=== PATIENT | male | born 1955 | race Caucasian/White ===

== ENCOUNTER 2017-09-30 16:14 | Inpatient (IN) | payer MEDICARE ==
[2017-09-30] MEDS ORDERED: NORMAL SALINE 1,000 ML IV ONE (16:53)
[2017-09-30] MEDS ORDERED: LEVOFLOXACIN IN DEXTROSE 5 % 500 MG/100 ML BAG IV SCH (17:00)
--- NOTE | 2017-09-30 17:23 | ERNOTE ---
Dyspnea - Date Date of Service: 09/30/17 - General Presenting Symptoms: shortness of breath Time Seen by Provider: 09/30/17 16:47 Source: patient Exam Limitations: no limitations - Immun/Allergies/Home Medications Immunizations: IMMUNIZATION HX Immunizations Up to Date Yes History of Influenza Vaccine Yes Hx Pneumococcal Vaccination Yes Allergies/Adverse Reactions: Allergies bupropion HCl [From Zyban] Allergy (Intermediate, Verified 09/30/17 16:35) Other swollen eyelids varenicline tartrate [From Chantix] Adverse Reaction (Mild, Verified 09/30/17 16 :35) facial swelling Home Medications: HOME MEDICATIONS Simvastatin 20 mg PO HS 10/16/12 [Last Taken Unknown] Losartan Potassium [Cozaar] 25 mg PO DAILY 08/25/16 [Last Taken Unknown] Aspirin [Aspir-Low] 81 mg PO DAILY 09/30/17 [Last Taken Unknown] - History of Present Illness Narrative: Patient presents to the ED for cough and fever from his doctor's office. he has been sick for the last day jihan cough, fever, SOB. he went to his PCP office, noted to have right sided pneumonia on CXR with leukocytosis, neg strep and influenza. Sent here for admission. He states he generally feels terrible but no specific pain. He states he has been around sick people. Tells me he just had chemotherapy for lung cancer and did receive neulasta. nothing makes this better or worse. 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 Denies: chest pain/ discomfort, ankle/leg swelling Prior Treatment: Reports: recently seen, treated by physician Review of Systems - Review of Systems Constitutional: Present: fever Respiratory: Present: cough Cardiology: Absent: chest pain Gastrointestinal/Abdominal: Absent: abdominal pain All Other Systems: All systems neg except as marked - Patient's Past Medical History Patient History - Medical: Seizures Patient History - Cardiac/Respiratory: COPD, Hypertension, Hyperlipidemia, Other Patient History - Cancer: Lung Patient History - Surgical Procedures: Appendectomy, Colonoscopy, Other Patient History - Other: None - Family History Father Family History - Cardiac/Respiratory: CHF Mother Family History - Medical: Diabetes Type 2 - Social History Abuse History: No History of abuse Psych History: No pertinent hx - Immunizations Immunizations Up to Date: Yes Hx Pneumococcal Vaccination: Yes History of Influenza Vaccine: Yes Physical Exam - Physical Exam General Appearance: Present: alert, no apparent distress Head Exam: Present: normal inspection, no evidence of injury Eye Exam: Normal inspection: bilateral, PERRL: bilateral Ears, Nose, Throat: Present: normal ENT inspection Neck: Present: normal inspection Respiratory: Present: no respiratory distress, no accessory muscle use, other - few scatered wheezes Cardiovascular/Chest: Present: normal peripheral pulses, tachycardia Gastrointestinal/Abdominal: Present: normal bowel sounds, nontender, nondistended, soft Back Exam: Present: normal range of motion Extremity Exam: Present: normal inspection Neurological Exam: Present: alert, normal mood/affect, no motor/sensory deficits Skin Exam: Present: normal color, warm/dry ED Progress - Results and Orders Patient's Lab Results:: I have reviewed the patient's lab results. - Vital Signs Patient's Vital Signs:: I have reviewed the patient's vital signs. Vital Signs: Vital Signs 09/30/17 16:30 Temperature 38.3 C H Pulse Rate 129 H Respiratory 16 Rate Blood Pressure 108/78 O2 Sat by Pulse 93 Oximetry - EKG EKG read: Interp. by me EKG Comments: Sinus techycardia. Non-specific ST/T wave changes, no STEMI - Progress/Reassessment Chief Complaint: Dyspnea Progress Note-Subjective: 09/30/17 17:22 IV started, IV fluids and IV ABx started. Blood cultures obtained. D/W Dr Jones, he will admit. Patient agreeable. Departure Clinical Impression: Fever, Pneumonia, Leukocytosis - Departure Disposition: [facility] Condition: Stable Referrals: Mónica Velasquez FNP [Primary Care Provider] -
--- NOTE | 2017-09-30 18:48 | HP ---
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 The patient was restarted back on his chemotherapy last April after a 7 month lay off. He receives chemotherapy every 3 weeks and just finished his chemotherapy. He is also on Neulasta with this. 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 He went to his primary care office today and was found to be febrile. His chest x-ray showed a right middle lobe pneumonia and his white blood cell count was elevated at 55, 000. The patient was sent to the emergency room and was admitted for further treatment. - Patient's Past Medical History Patient History - Medical: No pertinent hx Patient History - Cardiac/Respiratory: COPD, Hypertension, Hyperlipidemia, Pneumonia, Other Patient History - Cancer: Lung Patient History - Surgical Procedures: Appendectomy, Colonoscopy, Pneumothorax, Other Patient History - Other: None - Family History Father Family History - Medical: Family History - Cardiac/Respiratory: Coronary Heart Disease, CHF Family History - Cancer: Colon Mother Family History - Medical: Diabetes Type 2, Other Family History - Cardiac/Respiratory: CVA/Stroke Family History - Cancer: Colon - Social History Living Situations: spouse Abuse History: No History of abuse Psych History: No pertinent hx Alcohol Use: none Drug Use: none - Immunizations Immunizations Up to Date: Yes Hx Pneumococcal Vaccination: Yes History of Influenza Vaccine: Yes Review Of Systems (GEN) - Review of Systems Generalized/Overall Review: Present: Fever Respiratory: Present: Cough, Shortness of Breath, Wheezing Cardiac: Absent: Chest Pain, Palpitations Abdominal: Absent: Nausea, Vomiting Genitourinary: Absent: Urgency, Frequency Musculoskeletal: Absent: Joint Pain Immunizations: IMMUNIZATION HX Immunizations Up to Date Yes History of Influenza Vaccine Yes Hx Pneumococcal Vaccination Yes Allergies/Adverse Reactions: Allergies Allergy/AdvReac Type Severity Reaction Status Date / Time bupropion HCl [From Zyban] Allergy Intermediate Other Verified 09/30/17 16:35 varenicline tartrate AdvReac Mild Verified 09/30/17 16:35 [From Chantix] Home Medications: HOME MEDICATIONS Simvastatin 20 mg PO HS 10/16/12 [Last Taken Unknown] Losartan Potassium [Cozaar] 25 mg PO DAILY 08/25/16 [Last Taken Unknown] Aspirin [Aspir-Low] 81 mg PO DAILY 09/30/17 [Last Taken Unknown] Exam - Exam Vital Signs: Vital Signs - Last Taken Temp 38.3 C H 09/30/17 16:30 Pulse 129 H 09/30/17 16:30 Resp 16 09/30/17 16:30 BP 108/78 09/30/17 16:30 Pulse Ox 93 09/30/17 16:30 Constitutional: Present: Alert, Oriented x3, Cooperative ENT Exam: Present: hearing grossly normal Eye Exam: bilateral eye: normal inspection, PERRL, EOMI Neck: Present: supple Respiratory: Present: decreased breath sounds, wheezing, No rales Cardiovascular/Chest: Present: regular rate, rhythm, no JVD, no murmur Abdomen: Present: Normal bowel sounds, soft, nontender, nondistended Extremity: Present: no pedal edema, no calf tenderness Diagnostic Studies: Laboratory Results Lactic Acid, Venous 0.9 mmol/L (0.4-1.9) 09/30/17 17:05 Assessment/Plan - Assessment/Plan (1) Pneumonia Assessment: pneumonia . will do Cefepime . Problem: Acute (2) Fever Assessment: due to pneumonia Problem: Acute (3) Leukocytosis Assessment: due to Pneumonia and neulasta Problem: Acute (4) Adenocarcinoma of right lung, stage 4 Problem: Chronic (5) COPD (chronic obstructive pulmonary disease) Assessment: will do Duoneb. Problem: Chronic (6) Hypertension Problem: Acute
[2017-09-30] MEDS ORDERED: ACETAMINOPHEN 325 MG TABLET PO PRN (18:50)
[2017-09-30] MEDS ORDERED: ALBUTEROL SULFATE/IPRATROPIUM 3 ML NEBU IH PRN (18:51)
[2017-09-30] MEDS ORDERED: ONDANSETRON HCL/PF 2 MG/ML VIAL IV PRN (19:54)
[2017-09-30] MEDS: CEFEPIME HCL 1 GM in DEXTROSE 5 % IN WATER 100 ML IV SCH ×2 (20:09)
[2017-09-30] MEDS: SIMVASTATIN 20 MG TABLET PO SCH (20:14)
[2017-09-30] MEDS ORDERED: ALBUTEROL SULFATE/IPRATROPIUM 3 ML NEBU IH ONE (22:49)
[2017-09-30] MEDS: ALBUTEROL SULFATE 2.5 MG/0.5 ML VIAL.NEB IH PRN (22:51)
[2017-10-01] MEDS: ALBUTEROL SULFATE/IPRATROPIUM 3 ML NEBU IH SCH ×6 (02:01→22:33)
[2017-10-01] MEDS: CEFEPIME HCL 1 GM in DEXTROSE 5 % IN WATER 100 ML IV SCH ×4 (08:08→20:32)
[2017-10-01] MEDS: LOSARTAN POTASSIUM 50 MG TABLET PO SCH (08:18)
[2017-10-01] MEDS: ASPIRIN 81 MG TABLET.DR PO SCH (08:18)
[2017-10-01 08:22] LABS: Hemoglobin 13.2 gm/dL (13.5-18.0); Mean Cell Volume 92.4 fl (78-100); Mean Corpuscular Hemoglobin 31.3 pg (27-31); Mean Corpuscular Hgb Conc 33.8 g/dl (32-36); Mean Platelet Volume 9.6 fl (6.0-9.5); Platelet Count 186 K/mm3 (150-450); Red Blood Count 4.22 M/mm3 (4.7-6.0); Red Cell Distribution Width 15.5 % (11.5-14.0); White Blood Count 32.5 K/mm3 (4.0-10.5)
[2017-10-01 08:23] LABS: Total Cells Counted 100
[2017-10-01 08:31] LABS: Anion Gap 12.8 mmol/L (6.8-13.8); BUN/Creatinine Ratio 14.1 (9.0-21.6); Calcium * 8.3 mg/dL (7.9-10.9); Carbon Dioxide 26.6 mmol/L (24-32.6); Estimated Creat Clear 84.3; Potassium 3.4 mmol/L (3.4-4.6)
[2017-10-01 08:39] LABS: Band 13 % (0-2.0); Immature Granulocyte 4 (0-1); Lymphocyte 3 % (20-51); Neutrophil 80 % (42-75)
[2017-10-01 08:40] LABS: Platelet Estimate Normal (NORMAL)
[2017-10-01 08:41] LABS: Dohle Bodies Trace; RBC Morphology Normal (NORMAL); Toxic Granulation 1+
--- NOTE | 2017-10-01 08:51 | PN ---
Subjective - Date and Time Seen Date: 10/01/17 Time: 08:48 Subjective Narrative: Feeling better this morning. Afebrile so far today. Tmax yesterday was 38.3 Objective - Review of Systems Generalized/Overall Review: Reports: Fever. Denies: Chills Respiratory: Reports: Cough, Shortness of Breath, Wheezing - less Cardiac: Denies: Chest Pain, Edema Abdominal: Denies: Nausea, Vomiting Genitourinary Symptoms: Denies: Urgency, Frequency Musculoskeletal Complaints: Reports: Joint Pain - Vitals Vitals: Last Vital Signs Temp 37 C 10/01/17 08:00 Pulse 115 H 10/01/17 08:18 Resp 20 10/01/17 08:00 BP 109/64 10/01/17 08:18 Pulse Ox 91 10/01/17 08:00 - Abnormal Lab Findings Abnormal Lab Findings: Abnormal Lab Results 10/01/17 10/01/17 Range/Units 08:12 08:12 WBC 32.5 H D (4.0-10.5) K/mm3 RBC 4.22 L (4.7-6.0) M/mm3 Hgb 13.2 L (13.5-18.0) gm/dL Hct 39.0 L (42.0-52.0) % MCH 31.3 H (27-31) pg RDW 15.5 H (11.5-14.0) % MPV 9.6 H (6.0-9.5) fl Neutrophils % (Manual) 80 H (42-75) % Band Neuts % (Manual) 13 H (0-2.0) % Lymphocytes % (Manual) 3 L (20-51) % Immature Granulocytes 4 H (0-1) Neutrophils # (Manual) 26.0 H (1.3-6.0) K/mm3 Lymphocytes # (Manual) 1.0 L (1.5-3.5) k/mm3 Random Glucose 175 H D (70-110) mg/dL - Exam Constitutional: Present: Alert, Oriented x3, Cooperative ENT Exam: Present: hearing grossly normal Neck: Present: supple Respiratory: Present: decreased breath sounds, wheezing - occasional. Absent: No rales Cardiovascular/Chest: Present: regular rate, rhythm, no JVD, no murmur Abdomen: Present: Normal bowel sounds, soft, nontender, nondistended Extremity: Present: no pedal edema, no calf tenderness Assessment/Plan - Problems/Diagnosis (1) Pneumonia Problem: Acute Qualifiers: Pneumonia type: due to unspecified organism Laterality: right Lung location: middle lobe of lung Qualified Code(s): J18.1 - Lobar pneumonia, unspecified organism Narrative: WBC down to 32 from 55. continue with IV antibiotics. (2) Fever Problem: Acute Narrative: afebrile so far today (3) Leukocytosis Problem: Acute Narrative: improved (4) Adenocarcinoma of right lung, stage 4 Problem: Chronic Narrative: s/p recent CTX. was not neutropenic due to neulasta. vanco deferred and will defer as his WBC is improving. (5) COPD (chronic obstructive pulmonary disease) Problem: Chronic (6) Hypertension Problem: Acute Narrative: s/p recent CTX. was not neutropenic due to neulasta.
[2017-10-01] MEDS: ALBUTEROL SULFATE 2.5 MG/0.5 ML VIAL.NEB IH PRN (13:32)
[2017-10-01] MEDS: SIMVASTATIN 20 MG TABLET PO SCH (20:35)
[2017-10-02] MEDS: ALBUTEROL SULFATE/IPRATROPIUM 3 ML NEBU IH SCH ×6 (03:30→22:59)
[2017-10-02 07:58] LABS: Hematocrit 37.5 % (42.0-52.0); Hemoglobin 12.8 gm/dL (13.5-18.0); Mean Cell Volume 92.4 fl (78-100); Mean Corpuscular Hemoglobin 31.5 pg (27-31); Mean Corpuscular Hgb Conc 34.1 g/dl (32-36); Mean Platelet Volume 9.9 fl (6.0-9.5); Platelet Count 193 K/mm3 (150-450); Red Blood Count 4.06 M/mm3 (4.7-6.0); Red Cell Distribution Width 15.3 % (11.5-14.0); White Blood Count 23.3 K/mm3 (4.0-10.5)
[2017-10-02 08:04] LABS: Total Cells Counted 100
[2017-10-02 08:15] LABS: Atypical (Reactive) Lymph 3 % (0-2); Band 8 % (0-2.0); Eosinophil 1 % (0-3); Lymphocyte 2 % (20-51); Neutrophil 86 % (42-75)
[2017-10-02 08:16] LABS: Platelet Estimate Normal (NORMAL)
[2017-10-02 08:17] LABS: Dohle Bodies Trace; Toxic Granulation Trace
[2017-10-02 08:18] LABS: RBC Morphology Normal (NORMAL)
[2017-10-02] MEDS: ASPIRIN 81 MG TABLET.DR PO SCH (08:30)
[2017-10-02] MEDS: CEFEPIME HCL 1 GM in DEXTROSE 5 % IN WATER 100 ML IV SCH ×2 (08:30)
[2017-10-02] MEDS: LOSARTAN POTASSIUM 50 MG TABLET PO SCH (08:52)
--- NOTE | 2017-10-02 10:05 | PN ---
Subjective - Date and Time Seen Date: 10/02/17 Time: 10:03 Subjective Narrative: Patient NAD . Day 2.5 of IV cefepime. Continue to feel better. Objective - Review of Systems Generalized/Overall Review: Denies: Chills, Fever Respiratory: Reports: Cough, Shortness of Breath. Denies: Wheezing Cardiac: Denies: Chest Pain, Palpitations Abdominal: Denies: Nausea, Vomiting Genitourinary Symptoms: Denies: Urgency, Frequency - Vitals Vitals: Last Vital Signs Temp 36.7 C 10/02/17 07:10 Pulse 114 H 10/02/17 09:00 Resp 23 H 10/02/17 07:25 BP 94/68 10/02/17 08:52 Pulse Ox 93 10/02/17 07:15 - Abnormal Lab Findings Abnormal Lab Findings: Abnormal Lab Results 10/02/17 Range/Units 07:53 WBC 23.3 H D (4.0-10.5) K/mm3 RBC 4.06 L (4.7-6.0) M/mm3 Hgb 12.8 L (13.5-18.0) gm/dL Hct 37.5 L (42.0-52.0) % MCH 31.5 H (27-31) pg RDW 15.3 H (11.5-14.0) % MPV 9.9 H (6.0-9.5) fl Neutrophils % (Manual) 86 H (42-75) % Band Neuts % (Manual) 8 H (0-2.0) % Lymphocytes % (Manual) 2 L (20-51) % Neutrophils # (Manual) 20.0 H (1.3-6.0) K/mm3 Lymphocytes # (Manual) 0.5 L (1.5-3.5) k/mm3 Atypic/Reactive Lymphs 3 H (0-2) % - Exam Constitutional: Present: Alert, Oriented x3, Cooperative ENT Exam: Present: hearing grossly normal Neck: Present: supple Respiratory: Present: decreased breath sounds. Absent: No rales, No wheezing Cardiovascular/Chest: Present: regular rate, rhythm, no JVD, no murmur Abdomen: Present: Normal bowel sounds, soft, nontender, nondistended Extremity: Present: no pedal edema, no calf tenderness Assessment/Plan - Problems/Diagnosis (1) Pneumonia Problem: Acute Qualifiers: Pneumonia type: due to unspecified organism Laterality: right Lung location: middle lobe of lung Qualified Code(s): J18.1 - Lobar pneumonia, unspecified organism Narrative: continue with IV cefepime. Tmax 37.7. (2) Fever Problem: Acute Narrative: Tmax 37.7 (3) Adenocarcinoma of right lung, stage 4 Problem: Chronic (4) Leukocytosis Problem: Acute Narrative: down to 23 (5) COPD (chronic obstructive pulmonary disease) Problem: Chronic (6) Hypertension Problem: Acute
[2017-10-02] MEDS: ALBUTEROL SULFATE 2.5 MG/0.5 ML VIAL.NEB IH PRN (16:47)
[2017-10-02] MEDS: CEFEPIME HCL 1 GM in NORMAL SALINE 100 ML IV SCH (20:03)
[2017-10-02] MEDS: SIMVASTATIN 20 MG TABLET PO SCH (20:03)
[2017-10-03] MEDS: ALBUTEROL SULFATE/IPRATROPIUM 3 ML NEBU IH SCH ×2 (02:32→06:07)
[2017-10-03 05:53] LABS: Hemoglobin 12.1 gm/dL (13.5-18.0); Mean Cell Volume 90.9 fl (78-100); Mean Corpuscular Hemoglobin 31.4 pg (27-31); Mean Corpuscular Hgb Conc 34.6 g/dl (32-36); Mean Platelet Volume 9.8 fl (6.0-9.5); Platelet Count 225 K/mm3 (150-450); Red Blood Count 3.85 M/mm3 (4.7-6.0); White Blood Count 11.5 K/mm3 (4.0-10.5)
[2017-10-03 05:55] LABS: Total Cells Counted 100
[2017-10-03 06:05] LABS: Band 4 % (0-2.0); Eosinophil 1 % (0-3); Lymphocyte 8 % (20-51); Neutrophil 87 % (42-75)
[2017-10-03 06:06] LABS: Dohle Bodies 2+; Macrocytosis 1+; Toxic Granulation 1+
[2017-10-03 06:07] LABS: Target Cells Trace
[2017-10-03 06:36] VITALS: BP 121/76
--- NOTE | 2017-10-03 07:03 | DS ---
Addendum entered and electronically signed by Love Jones MD 10/03/17 07 :37: I saw and examined this patient. I agree wit the narrative and plan of MERARY Prince. He had 3 days of IV Cefepime for Pneumonia. His WBC went doem from 55 to 11.5. he is clinically stable to be discharge today on Levaquin 750 mg po QD x 7 days. Follow up with his PCP in 1 week. 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 The patient was restarted back on his chemotherapy last April after a 7 month lay off. He receives chemotherapy every 3 weeks and just finished his chemotherapy. He is also on Neulasta with this. 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 He went to his primary care office and was found to be febrile. His chest x-ray showed a right middle lobe pneumonia and his white blood cell count was elevated at 55, 000. The patient was sent to the emergency room and was admitted. During this adm he was treated with IV antibiotics and nebulizer treatments. he remains medically stable and tolerated treatment well. pt is medically stable for discharge and follow up with PCP 3-7 days. Procedures Performed: none Discharge Disposition: Home self care Disposition: Home self-care Condition: Stable Discharge Activity: Activity as tolerated Discharge Diet: General/regular food Referrals: Mónica Velasquez FNP [Primary Care Provider] - Prescriptions (Any new or edited meds): Acetaminophen [Tylenol] 650 mg PO QID PRN 10 Days tablet PRN Reason: Pain/Fever Albuterol Sulfate [Albuterol Sulfate 2.5 MG/0.5ML] 2.5 mg IH Q2H PRN #1 bag PRN Reason: shortness of breath Levofloxacin [Levaquin] 750 mg PO DAILY 7 Days tablet Complete Home Medications List: Complete Home Medication List: Losartan Potassium [Cozaar] 50 mg PO DAILY 08/25/16 Aspirin [Aspir-Low] 81 mg PO DAILY 09/30/17 Fluticasone/Salmeterol [Advair 100-50 Diskus] 1 puff IH BID 09/30/17 Prochlorperazine Maleate [Compazine] 10 mg PO Q6H PRN 09/30/17 Acetaminophen [Tylenol] 650 mg PO QID PRN 10 Days tablet 10/03/17 Albuterol Sulfate [Albuterol Sulfate 2.5 MG/0.5ML] 2.5 mg IH Q2H PRN #1 bag 09/09 Levofloxacin [Levaquin] 750 mg PO DAILY 7 Days tablet 10/03/17 Nebulizer [Compact Ultrasonic Nebulizer] 1 each Q6H #7 kit 10/03/17 Simvastatin [Zocor] 20 mg PO HS tablet 10/03/17
[2017-10-03] MEDS: CEFEPIME HCL 1 GM in NORMAL SALINE 100 ML IV SCH (07:05)
[2017-10-03] MEDS: LOSARTAN POTASSIUM 50 MG TABLET PO SCH (08:10)
[2017-10-03] MEDS: ASPIRIN 81 MG TABLET.DR PO SCH (08:11)
== END 2017-10-03 08:55 | disposition home or self-care (01) | DRG 194 ==
LOC: ER 16:14 → MS 17:16
PROVIDERS: ADMIT Internal Medicine; ATTEND Internal Medicine
DX: J18.1 Lobar pneumonia, unspecified organism (principal); C34.91 Malignant neoplasm of unspecified part of right bronchus or lung; C79.31 Secondary malignant neoplasm of brain; D72.829 Elevated white blood cell count, unspecified; J44.9 Chronic obstructive pulmonary disease, unspecified; I10 Essential (primary) hypertension; E78.5 Hyperlipidemia, unspecified; Z79.899 Other long term (current) drug therapy; Z79.82 Long term (current) use of aspirin

== ENCOUNTER 2019-03-28 09:06 | Observation (INO) ==
[2019-03-28] MEDS ORDERED: ALBUTEROL SULFATE/IPRATROPIUM 3 ML NEBU IH ONE (09:23)
[2019-03-28] MEDS ORDERED: METHYLPREDNISOLONE SOD SUCC/PF 40 MG/ML VIAL IV ONE (09:23)
[2019-03-28 09:40] LABS: Hematocrit 45.2 % (42.0-52.0); Hemoglobin 15.1 gm/dL (13.5-18.0); Mean Cell Volume 93.8 fl (78-100); Mean Corpuscular Hemoglobin 31.3 pg (27-31); Mean Corpuscular Hgb Conc 33.4 g/dl (32-36); Mean Platelet Volume 10.2 fl (8-11.3); Neutrophil # 9.5 K/mm3 (1.3-6.0); Neutrophil % 84.7 % (42-75.0); Platelet Count 235 K/mm3 (150-450); Red Blood Count 4.82 M/mm3 (4.7-6.0); Red Cell Distribution Width 14.6 % (11.5-14.0); White Blood Count 11.2 K/mm3 (4.0-10.5)
[2019-03-28] MEDS ORDERED: ALBUTEROL SULFATE 2.5 MG/0.5 ML VIAL.NEB IH ONE ×2 (09:48→10:48)
[2019-03-28 10:01] LABS: ALT 31 U/L (19-67); AST 22 U/L (0-48); Albumin * 3.3 gm/dl (3.4-5.0); Alkaline Phosphatase * 157 U/L (50-170); Anion Gap 14.7 mmol/L (6.8-13.8); BNP * 184 pg/mL (5-175); BUN/Creatinine Ratio 17.2 (9.0-21.6); Bilirubin, Total 0.9 mg/dL (0.0-1.1); Blood Urea Nitrogen 16 mg/dL (6-23); Ca. Corrected For Albumin 9.4 mg/dL (8.4-10.2); Calcium * 9.2 mg/dL (7.9-10.9); Carbon Dioxide 26.6 mmol/L (24-32.6); Chloride 103 mmol/L (97-106); Glucose * 121 mg/dL (70-110); Potassium 3.3 mmol/L (3.4-4.6); Sodium 141 mmol/L (132-142); Total Protein 7.1 gm/dL (6.2-8.2)
[2019-03-28 10:02] LABS: Troponin I Less than 0.017 ng/mL (0.00-0.10)
[2019-03-28] MEDS ORDERED: NORMAL SALINE 1,000 ML IV ONE ×2 (10:19→17:29)
[2019-03-28] MEDS ORDERED: cefTRIAXone SODIUM 1,000 MG/100 ML BAG IV ONE (10:43)
[2019-03-28] MEDS ORDERED: AZITHROMYCIN 500 MG in DEXTROSE 5 % IN WATER 250 ML IV ONE ×2 (11:00)
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
[2019-03-28] MEDS ORDERED: HEPARIN SOD.,PORCINE 100 UNITS/ML IV ONE (14:06)
[2019-03-28] MEDS ORDERED: ENOXAPARIN SODIUM 40 MG/0.4 ML SYRG SC SCH (17:00)
[2019-03-28] MEDS ORDERED: ACETAMINOPHEN 325 MG TABLET PO PRN (17:02)
[2019-03-28] MEDS ORDERED: PROCHLORPERAZINE MALEATE 10 MG TABLET PO PRN (17:07)
[2019-03-28] MEDS ORDERED: NAPROXEN SODIUM 220 MG TABLET PO PRN (17:07)
[2019-03-28] MEDS ORDERED: ONDANSETRON 8 MG TAB.RAPDIS PO PRN (17:07)
[2019-03-28] MEDS ORDERED: POTASSIUM CHLORIDE 20 MEQ TABLET.SA PO ONE (17:35)
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
[2019-03-28] MEDS: METHYLPREDNISOLONE SOD SUCC/PF 125 MG/2 ML VIAL IV SCH ×2 (17:45→22:47)
[2019-03-28] MEDS: ALBUTEROL SULFATE/IPRATROPIUM 3 ML NEBU IH SCH ×2 (18:11→22:41)
[2019-03-28] MEDS ORDERED: SIMVASTATIN 20 MG TABLET PO SCH (21:00)
[2019-03-28] MEDS: FAMOTIDINE 20 MG TABLET PO SCH (21:05)
[2019-03-29] MEDS ORDERED: HEPARIN SOD.,PORCINE 100 UNITS/ML ONE ×2 (02:04→10:01)
[2019-03-29] MEDS: ALBUTEROL SULFATE/IPRATROPIUM 3 ML NEBU IH SCH ×2 (02:51→06:00)
[2019-03-29] MEDS: METHYLPREDNISOLONE SOD SUCC/PF 125 MG/2 ML VIAL IV SCH (05:16)
[2019-03-29 05:57] LABS: Hemoglobin 13.3 gm/dL (13.5-18.0); Mean Cell Volume 93.9 fl (78-100); Mean Corpuscular Hemoglobin 31.2 pg (27-31); Mean Corpuscular Hgb Conc 33.3 g/dl (32-36); Mean Platelet Volume 10.3 fl (8-11.3); Platelet Count 248 K/mm3 (150-450); Red Blood Count 4.26 M/mm3 (4.7-6.0); Red Cell Distribution Width 14.6 % (11.5-14.0); White Blood Count 21.2 K/mm3 (4.0-10.5)
[2019-03-29 05:59] LABS: Total Cells Counted 100
[2019-03-29 06:23] LABS: Albumin * 2.9 gm/dl (3.4-5.0); Anion Gap 14.8 mmol/L (6.8-13.8); BUN/Creatinine Ratio 21.9 (9.0-21.6); Bilirubin, Total 0.4 mg/dL (0.0-1.1); Ca. Corrected For Albumin 9.6 mg/dL (8.4-10.2); Carbon Dioxide 24.1 mmol/L (24-32.6); Potassium 3.9 mmol/L (3.4-4.6); Total Protein 6.4 gm/dL (6.2-8.2)
[2019-03-29 07:01] LABS: Band 11 % (0-2.0); Lymphocyte 4 % (20-51); Monocyte 6 % (0-9); Neutrophil 79 % (42-75); Neutrophil # 16.7 K/mm3 (1.3-6.0); Platelet Estimate Normal (NORMAL)
[2019-03-29 07:02] LABS: Dohle Bodies 1+; RBC Morphology Normal (NORMAL); Toxic Granulation 2+
[2019-03-29] MEDS ORDERED: METHYLPREDNISOLONE SOD SUCC/PF 125 MG/2 ML VIAL IV SCH (09:00)
[2019-03-29] MEDS ORDERED: DOCUSATE SODIUM 100 MG CAPSULE PO SCH (09:00)
[2019-03-29] MEDS ORDERED: METHYLPREDNISOLONE SOD SUCC/PF 40 MG/ML VIAL IV SCH (09:00)
[2019-03-29] MEDS ORDERED: AZITHROMYCIN 250 MG TABLET PO SCH (09:00)
[2019-03-29] MEDS ORDERED: LOSARTAN POTASSIUM 50 MG TABLET PO SCH (09:00)
[2019-03-29] MEDS: FAMOTIDINE 20 MG TABLET PO SCH (09:37)
--- NOTE | 2019-03-29 09:38 | DS ---
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 Patient's respiratory function has improved significantly, he is saturating adequately at room air and his persistent cough has resolved. He also denies shortness of breath or difficulty breathing. Auscultation of his lungs revealed mild scattered wheezing which most likely is a chronic finding, however his breath sounds have improved. Patient has an elevated WBC likely secondary to IV steroids therefore steroids was were weaned. He has hypokalemia resolved with potassium chloride replacement and his renal function has improved. Therefore given these findings decision to discharge patient home with a prescription for additional days of p.o. antibiotics and p.o. steroids was made. He was instructed to follow-up with his PCP his oncologist and mold cooler to evaluate his chronic conditions. Patient is currently on chemotherapy and is scheduled to receive another session in a couple of days, he was instructed to avoid sick contacts given his im munosuppressed state he expressed that he understood. Patient was also counseled on the importance of quitting smoking and he agreed that he will gradually reduce his cigarette intake until he quits totally. Procedures Performed: none Results and Findings: Lab Pending Results 03/28/19 09:30: WBC 11.2 H, RBC 4.82, Hgb 15.1, Hct 45.2, MCV 93.8, MCH 31.3 H, MCHC 33.4, RDW 14.6 H, Plt Count 235, MPV 10.2, Immature Gran % (Auto) 1.20 H, Immature Gran # (Auto) 0.13 H, Neutrophils % 84.7 H, Lymphocytes % 8.7 L, Monocytes % 4.6, Eosinophils % 0.5, Basophils % 0.3, Nucleated RBC % 0.0, Neutrophils # 9.5 H, Lymphocytes # 0.97 L, Monocytes # 0.5, Eosinophils # 0.1, Absolute Basophils 0.0 03/28/19 09:30: Sodium 141, Plasma Sodium 141, Potassium 3.3 L, Chloride 103, Carbon Dioxide 26.6, Anion Gap 14.7 H, BUN 16, Creatinine 0.93, Est GFR (Non-Af Amer) 88 D, BUN/Creatinine Ratio 17.2, Random Glucose 121 H, Calcium 9.2, Calcium Adj for Albumin 9.4, Total Bilirubin 0.9, AST 22, ALT 31, Alkaline Phosphatase 157, Troponin I Less than 0.017, B-Natriuretic Peptide 184 H, Total Protein 7.1, Albumin 3.3 L 03/28/19 09:30: Lactic Acid, Venous 1.4 03/28/19 09:30: Influenza Type A Ag Negative, Influenza Type B Ag Negative 03/29/19 05:50: WBC 21.2 H D, RBC 4.26 L, Hgb 13.3 L, Hct 40.0 L, MCV 93.9, MCH 31.2 H, MCHC 33.3, RDW 14.6 H, Plt Count 248, MPV 10.3, Neutrophils % (Manual) 79 H, Band Neuts % (Manual) 11 H, Lymphocytes % (Manual) 4 L, Monocytes % (Manual) 6, Neutrophils # (Manual) 16.7 H, Lymphocytes # (Manual) 0.8 L, Monocytes # (Manual) 1.3 H, Toxic Granulation 2+, Dohle Bodies 1+, Platelet Estimate Normal, RBC Morphology Normal 03/29/19 05:50: Sodium 142, Plasma Sodium 143 H, Potassium 3.9, Chloride 107 H, Carbon Dioxide 24.1, Anion Gap 14.8 H, BUN 16, Creatinine 0.73, Est GFR (Non-Af Amer) 116 D, BUN/Creatinine Ratio 21.9 H, Random Glucose 160 H D, Calcium 9.0, Calcium Adj for Albumin 9.6, Total Bilirubin 0.4, AST 17, ALT 39, Alkaline Phosphatase 146, Total Protein 6.4, Albumin 2.9 L Discharge Location: Home Disposition: Home self-care Condition: Fair Face to Face Encounter completed per CMS Guidelines: No Discharge Activity: Activity as tolerated Discharge Diet: General/regular food Referrals: Mónica Velasquez FNP [Primary Care Provider] - Additional Patient Instructions (free text): -Please make TCM appointment unless jail discharge. Thank you! Maura @ [phone]. Prescriptions (Any new or edited meds): Azithromycin 250 mg PO DAILY 5 Days #5 tab Promethazine HCl [Phenergan Suppository] 25 mg RC Q6H PRN #20 supp.rect PRN Reason: Nausea predniSONE [Prednisone] 40 mg PO DAILY #10 tab Complete Home Medications List: Complete Home Medication List: Dexamethasone [Decadron] 8 mg PO BID PRN 04/27/18 Ondansetron [Zofran Odt] 8 mg PO Q6H PRN 04/27/18 albuterol sulfate HFA 90 mcg/actuation aerosol inhaler 2 inh IH Q6H PRN 05/01/18 prochlorperazine maleate 10 mg tablet 10 mg PO Q6H PRN 05/01/18 tiotropium bromide 18 mcg capsule with inhalation device 1 cap IH DAILY 05/01/18 losartan 50 mg tablet 25 mg PO DAILY #45 tab 02/28/19 simvastatin 20 mg tablet 20 mg PO HS #90 tab 03/14/19 Albuterol Sulfate [Albuterol Sulfate 2.5 MG/0.5ML] 2.5 mg INHALATION TID PRN 03/28/19 Fluticasone/Vilanterol [Breo Ellipta 100-25 Mcg INH] 1 inh INH DAILY 03/28/19 Naproxen Sodium [Aleve] 440 mg PO BID PRN 03/28/19 Azithromycin 250 mg PO DAILY 5 Days #5 tab 03/29/19 Promethazine HCl [Phenergan Suppository] 25 mg RC Q6H PRN #20 supp.rect 03/29/19 predniSONE [Prednisone] 40 mg PO DAILY #10 tab 03/29/19
[2019-03-29 10:05] VITALS: BP 117/66
== END 2019-03-29 10:20 | disposition home or self-care (01) ==
LOC: MS 09:06 → ER 09:06 → MS 12:30
PROVIDERS: ADMIT Family Medicine; ATTEND Family Medicine
CPT/HCPCS: 36415; 71020; 71046; 80053; 83519; 83605; 83880; 84484; 85025; 87040; 87400; 87449; 93005; 94640; 94664; 96361; 96365; 96367; 96372; 96375; 99285; G0378